=== PATIENT | male | born 1965 | race Caucasian/White ===

== ENCOUNTER 2016-06-19 12:17 | Observation (INO) ==
[2016-06-19] MEDS ORDERED: Clindamycin 900 MG/50 ML 900 MG/50 ML IV.SOLN IVPB ONE (12:36)
--- NOTE | 2016-06-19 12:39 | Emergency Department Note ---
Disposition Clinical Impression: Cellulitis of left foot Disposition: Admitted As Inpatient Condition: Good Time of Disposition: 14:26 General Adult HPI - General Chief complaint: ED Skin/Abscess/Foreign Body Stated complaint: left foot problem Time Seen by Provider: 06/19/16 12:23 Source: patient Mode of arrival: ambulatory Limitations: no limitations Nursing Notes Reviewed: Yes Vital Signs Reviewed: Yes - History of Present Illness HPI Narrative: Mr. Alcala is a 50-year-old male past medical history of high blood pressure and arthritis who presents today with left foot infection. Patient reports that about a month ago the medial portion of his left foot and left big toe he started having tingling and a stinging feeling. 3 days ago he had big blisters along the same area that he contributed to possibly his boots being too tight. He soaked his foot in epsom salt and the surface skin sloughed off. The area underneight was red, bleeding and irritated. He reports that at one point it was draining pus. The area surrounding the wounds became erythematous and numb. He denies any fever or chills, any difficulty walking or severe pain. Patient denies any current treatment for diabetes; he reports that he was treated in the past was taken of all medications over 3 years ago. On his left foot he has two wounds along the medial aspect of the foot and big toe. Area is not currently bleeding and were unable to express any pus. The wounds are very erythematous and raw looking. He has surrounding erythema along the top of his left foot and up along his ankle. The area is warm to the touch and tender per the patient. He has full ROM of his left toes and ankle. There is decreased sensation with numbness and some sharp shooting pain surrounding the wounds. DP and PT pulses are 2+ in the left foot. Pt Subjective Complaint: Left foot wounds Onset (ago): day(s) Location: left, lower extremity Pain Severity: mild Pain Scale: 2 Quality: burning Consistency: constant Improves with: nothing Worsens with: nothing Associated symptoms: Denies: confusion, chest pain, cough, fever/chills, nausea/ vomiting, shortness of breath, weakness - Related Data Previous Rx's Medication Instructions Recorded Omeprazole 20 mg PO DAILY #25 tablet. 11/21/15 Dicyclomine [Bentyl] 20 mg PO QID #20 capsule 11/22/15 Promethazine [Phenergan] 25 mg PO Q6HR #20 tablet 11/22/15 Allergies Allergy/AdvReac Type Severity Reaction Status Date / Time No Known Allergies Allergy Verified 11/21/15 15:16 Constitutional: Denies: fever, chills ENT ED: Denies: congestion Cardiovascular: Denies: chest pain, palpitations Respiratory: Denies: cough, dyspnea, wheezes Gastrointestinal: Denies: abdominal pain, nausea, vomiting Genitourinary: Denies: urgency, dysuria, frequency Integumentary: Reports: other (two wounds along the medial aspect of left foot and left great toe) Neurological: Reports: numbness (surrounding the wounds). Denies: headache, weakness Past Medical History - Past Medical History Medical history: Reports: arthritis, diabetes, hyperlipidemia, hypertension Psychiatric history: Reports: anxiety, depression - Social History Smoking Status: Current every day smoker Smokeless Tobacco Status: No Alcohol use: Reports: heavy Drug use: Reports: none Physical Exam - General Limitations: no limitations General appearance: alert, in no apparent distress - Head Head exam: atraumatic, normocephalic - Eye Eye exam: Present: normal appearance, PERRL, EOMI - ENT ENT exam: normal exam - Neck Neck exam: Present: normal inspection - Chest Chest inspection: Present: normal inspection, symmetric chest wall rise - Respiratory Respiratory exam: Present: normal lung sounds bilaterally. Absent: respiratory distress - Cardiovascular Cardiovascular exam: Present: regular rate, normal rhythm - Abdominal Exam Abdominal exam: Present: soft, Non-Tender - Expanded Lower Extremity Exam Foot/toe exam: Present: tenderness, erythema, other (2 circular wounds along the medial aspect of his left foot and left big toe - red and irritated, no pus or active drainage. Surroundng numbness.). Absent: crepitus Neurovascular/Tendon exam: Present: sensory deficit (decreased sensation surrounding wounds). Absent: pulse deficit, motor deficit Gait: observed and normal - Neurological Exam Neurological exam: Present: alert, oriented X3, CN II-XII intact - Psychiatric Psychiatric exam: Present: normal affect, normal mood - Skin Skin exam: Present: warm, dry, intact Course Course Narrative: Mr. Alcala is a 50-year-old male who presents today with left foot infection. 3 days ago he had big blisters the medial aspect of his left foot and left big toe. He soaked his foot in epsom salt and the surface skin sloughed off. The area underneath was red, bleeding and irritated. He reports that at one point it was draining pus. The area surrounding the wounds became erythematous and numb. He denies any fever or chills, any difficulty walking or severe pain. On he left foot he has two wounds along the medial aspect of the foot and big toe. Area is not currently bleeding and were unable to express any pus. The wounds are very erythematous and raw looking. He has surrounding erythema along the top of his left foot and up along his ankle. The area is warm to the touch and tender per the patient. He has full ROM of his left toes and ankle. There is decreased sensation with numbness and some sharp shooting pain surrounding the wounds. Will do a CBC, CMP and sed rate. Will start IV antibiotics. Will get an x-ray to evaluate for foreign body or osteoarthritis. - Reevaluation(s) Reevaluation #1: Patient started on Cipro and Clindamycin for IV antibiotics. WBC slightly elevated at 12. X-ray showed no fracture, no foreign body and no signs of osteomyolitis. Patient has open wounds with cellulitis that is progressing up the patient's ankle. Believe that patient requires admission for IV antibiotics. Will discuss the patient with the admitting hospitalist. - Consultations Consultation #1: Patient discussed with Dr. Sewell, the hospitalist, and he as accepted the patient for admission. Vital Signs Temperature 97.5 F L 06/19/16 12:19 Pulse Rate 81 06/19/16 12:19 Respiratory Rate 20 06/19/16 12:19 Blood Pressure 167/90 06/19/16 12:19 O2 Sat by Pulse Oximetry 96 06/19/16 12:19 Temperature 98.2 F 06/19/16 18:57 Pulse Rate 71 06/19/16 18:57 Respiratory Rate 15 06/19/16 18:57 Blood Pressure 146/62 06/19/16 18:57 O2 Sat by Pulse Oximetry 94 L 06/19/16 18:57 Oxygen Delivery Oxygen Delivery Room Air Medical Decision Making - MDM Narrative Medical decision making narrative: Mr. Aclala is a 50-year-old male who presents today with left foot infection. 3 days ago he had big blisters the medial aspect of his left foot and left big to and the surface skin sloughed off. The area underneath was red, bleeding and irritated. He reports that at one point it was draining pus. The area surrounding the wounds became erythematous and numb. He denies any fever or chills, any difficulty walking or severe pain. On he left foot he has two wounds along the medial aspect of the foot and big toe. Area is not currently bleeding and were unable to express any pus. The wounds are very erythematous and raw looking. He has surrounding erythema along the top of his left foot and up along his ankle. The area is warm to the touch and tender per the patient. He has full ROM of his left toes and ankle. There is decreased sensation with numbness and some sharp shooting pain surrounding the wounds. CBC showed slightly elevated WBC at 12. X-ray showed no fracture, no foreign body and no signs of osteomyolitis. Concern is that this has spread up his ankle in just 3 days and he is not a diabetic and has no history of foot problems. Believe that patient would be best served with IV antibiotics. Patient accepted by hospitalist for admission. - Lab Data Lab results reviewed: Yes I reviewed the patient's lab results. Lab results narrative: Slightly elevated white blood cell count at 12. Glucose normally 93. Remainder of labs largely within normal limits. Result diagrams: 06/19/16 12:50 06/19/16 12:50 Lab Results 06/19/16 06/19/16 06/19/16 Range/Units 12:50 12:50 12:50 WBC 12.0 H (4.3-11.1) K/mcL RBC 4.62 (4.19-5.50) M/mcL Hgb 15.1 (12.9-16.9) g/dL Hct 42.6 (37.5-50.1) % MCV 92.2 (83.0-100.0) fL MCH 32.7 (28.0-33.3) pg MCHC 35.4 (31.6-35.5) g/dL RDW 11.9 (11.5-14.5) % Plt Count 115 L (140-400) K/mcL MPV 11.4 (9.4-12.4) fL Immature Gran % 0.3 (0-4) % Seg Neutrophils % 64.9 % Lymphocytes % 19.4 % Monocytes % 12.8 % Eosinophils % 2.2 % Basophils % 0.4 % Neutrophils # 7.8 (1.6-8.9) K/mcL Lymphocytes # 2.3 (0.6-4.6) K/mcL Monocytes # 1.5 H (0.0-1.3) K/mcL Eosinophils # 0.3 (0.0-0.6) K/mcL Basophils # 0.1 (0.0-0.2) K/mcL ESR 27 H (0-10) mm/hr Sodium 135 L (136-145) mEq/L Potassium 4.4 (3.5-4.5) mEq/L Chloride 104 (98-109) mEq/L Carbon Dioxide 23 (19-29) mEq/L BUN 13 (8-26) mg/dL Creatinine 0.92 (0.72-1.25) mg/dL Est GFR ( Amer) > 60 (> 60) Est GFR (Non-Af Amer) > 60 (> 60) BUN/Creatinine Ratio 14 (6-26) Glucose 93 (70-99) mg/dL Est Mean Plasma Glucose mg/dl Hemoglobin A1c ( - 5.6) % Calculated Osmolality 280 (280-300) Calcium 9.1 (8.6-10.8) mg/dL C-Reactive Protein 79 H (Less than 5) mg/L 06/19/16 Range/Units 12:50 WBC (4.3-11.1) K/mcL RBC (4.19-5.50) M/mcL Hgb (12.9-16.9) g/dL Hct (37.5-50.1) % MCV (83.0-100.0) fL MCH (28.0-33.3) pg MCHC (31.6-35.5) g/dL RDW (11.5-14.5) % Plt Count (140-400) K/mcL MPV (9.4-12.4) fL Immature Gran % (0-4) % Seg Neutrophils % % Lymphocytes % % Monocytes % % Eosinophils % % Basophils % % Neutrophils # (1.6-8.9) K/mcL Lymphocytes # (0.6-4.6) K/mcL Monocytes # (0.0-1.3) K/mcL Eosinophils # (0.0-0.6) K/mcL Basophils # (0.0-0.2) K/mcL ESR (0-10) mm/hr Sodium (136-145) mEq/L Potassium (3.5-4.5) mEq/L Chloride (98-109) mEq/L Carbon Dioxide (19-29) mEq/L BUN (8-26) mg/dL Creatinine (0.72-1.25) mg/dL Est GFR ( Amer) (> 60) Est GFR (Non-Af Amer) (> 60) BUN/Creatinine Ratio (6-26) Glucose (70-99) mg/dL Est Mean Plasma Glucose 94 mg/dl Hemoglobin A1c 4.9 ( - 5.6) % Calculated Osmolality (280-300) Calcium (8.6-10.8) mg/dL C-Reactive Protein (Less than 5) mg/L - Radiology Data Radiology results reviewed: Yes I reviewed the patient's radiology results. Foot X-Ray 06/19/16 12:37 IMPRESSION: No acute osseous abnormality. D/ / 06/19/2016 13:21:37 Sterling Bailey MD / [facility] Interpreting Provider: Sterling Bailey MD Attestation Statement - Attestation Attestation: I examined this patient and my medical decision-making was reviewed with the LIFT MECHANIC/PA/Advanced Practice Nurse/Resident Physician. I agree with the documented findings, disposition and treatment plan as described except to the extent set forth below. Patient emergency department complaining of some blisters on his foot. Patient states he noticed some blisters on the medial part of his left foot 3 days ago. He thought maybe his boot had rubbed rubbed it. He soaked in Epsom salt and the skin sloughed off. It is becoming increasingly red the past couple of days. Today the red streaks extended up his roberts. He comes for evaluation. He denies being diabetic. He denies any history of claudication or vascular problems. He is a smoker. On exam he has 2 areas over the left medial great toe and the base of the first MTP joint medially or blisters have occurred in the skin is sloughed off. There is erythema diffusely over the thought was some streaks extending up the medial calf. It is warm to touch. There is no drainage from the wounds. He is afebrile. Plan. The patient has infected blisters. He denies any injury or stepping on a foreign body. We will check an x-ray. We will check a sedimentation rate. Basic labs. IV antibiotics and likely admission. This is felt to be infectious and not vascular.
[2016-06-19 13:02] LABS: Basophils # 0.1 K/mcL (0.0-0.2); Basophils % 0.4 %; Eosinophils # 0.3 K/mcL (0.0-0.6); Eosinophils % 2.2 %; Hematocrit 42.6 % (37.5-50.1); Hemoglobin 15.1 g/dL (12.9-16.9); Immature Granulocytes % 0.3 % (0-4); Lymphocytes # 2.3 K/mcL (0.6-4.6); Lymphocytes % 19.4 %; Mean Corpuscular HGB Conc 35.4 g/dL (31.6-35.5); Mean Corpuscular Hemoglobin 32.7 pg (28.0-33.3); Mean Corpuscular Volume 92.2 fL (83.0-100.0); Mean Platelet Volume 11.4 fL (9.4-12.4); Monocytes # 1.5 K/mcL (0.0-1.3); Monocytes % 12.8 %; Neutrophils # 7.8 K/mcL (1.6-8.9); Platelet Count 115 K/mcL (140-400); Red Blood Count 4.62 M/mcL (4.19-5.50); Red Cell Distribution Width 11.9 % (11.5-14.5); Segmented Neutrophils % 64.9 %
[2016-06-19 13:13] LABS: BUN/Creatinine Ratio 14 (6-26); Blood Urea Nitrogen 13 mg/dL (8-26); Calcium 9.1 mg/dL (8.6-10.8); Carbon Dioxide 23 mEq/L (19-29); Chloride 104 mEq/L (98-109); Glucose 93 mg/dL (70-99); Osmolality,Calculated 280 (280-300); Potassium 4.4 mEq/L (3.5-4.5); Sodium 135 mEq/L (136-145); eGFR For African Americans > 60 (> 60); eGFR For Non-African Americans > 60 (> 60)
[2016-06-19] MEDS ORDERED: Acetaminophen 325 MG TABLET PO PRN (14:50)
[2016-06-19] MEDS ORDERED: Naloxone 0.4 MG/ML INJ IVP PRN (14:50)
[2016-06-19] MEDS ORDERED: *HR* LORazepam 2 MG/ML VIAL IVP PRN ×3 (14:55)
--- NOTE | 2016-06-19 14:59 | Internal Med History&Physical ---
<Brittni Arevalo M - Last Filed: 06/19/16 16:09> Date of Encounter: 06/19/16 Time of Encounter: 14:58 Assessment and Plan (1) Cellulitis of left foot Current visit: Yes Status: Acute Vital signs stable, afebrile. Erythema and tenderness ascending from wound site. Xray of the foot showed mild soft tissue swelling, and emphysematous changes within the subcutaneous tissues, no acute osseous abnormality. Aerobic wound culture sent. Patient initiated on Clindamycin and Ciprofloxacin in ED. Patient denies diabetes, but reports he was on metformin in the past, but was stopped due to improved blood sugars. Will get an A1c to check for diabetes. Consult to Podiatry. BLE arterial imaging studies (2) Hypertension Current visit: Yes Status: Acute continue home doses of lisinopril, metoprolol and amlodipine Qualifiers: Hypertension type: essential hypertension Qualified Code(s): I10 - Essential (primary) hypertension (3) Nicotine addiction Current visit: Yes Status: Acute Nicotine patch 21mg TD ordered. Counseling on smoking cessation provided. Qualifiers: Nicotine product type: cigarettes Substance use status: uncomplicated Qualified Code(s): F17.210 - Nicotine dependence, cigarettes, uncomplicated (4) Alcohol abuse Current visit: Yes Status: Acute Patient reports drinking 6-8 beers daily. CIWA protocol ordered. folic acid, thiamine and vitamin B complex ordered. (5) Acid reflux Current visit: Yes Status: Acute Omeprazole 20mg daily Qualifiers: Esophagitis presence: esophagitis presence not specified Qualified Code(s) : K21.9 - Gastro-esophageal reflux disease without esophagitis (6) DVT prophylaxis Current visit: Yes Status: Acute encourage ambulation Lovenox 40mg SQ daily Internal Medicine - H&P: HPI Admitted From: Emergency Dept Plans for Post Hospital Care: Home History of present illness: Mr. Alcala is a 50 year old male with history of HTN, GERD, and alcohol use who presented to the ED with complaint of foot wound. He reports about a month ago the inside of his left foot and left big toe started having tingling and a stinging feeling. About 3 days ago he noted big blisters along the same area that he states were where his boots were rubbing. He soaked his foot in epsom salt and the surface skin sloughed off. The area under the previous blisters was red, bleeding and irritated. He reports that at one point it was draining pus. The area surrounding the wounds became red and numb. He denies any fever or chills, night sweats, body aches. He denies any nausea, vomiting or diarrhea. He does not have any difficulty walking or severe pain. Patient reports he was given metformin for diabetes by his PCP previously, but was taken off of it about 3 years ago when his blood sugars were looking fine. Evaluation in the ED was significant for Xray of the foot which showed mild soft tissue swelling, and emphysematous changes within the subcutaneous tissues , no acute osseous abnormality. WBC count at 12, ESR elevated to 24 and CRP elevated to 79. On his left foot he has two wounds along the medial aspect of the foot and big toe. They appear beefy red, with black, necrotic looking areas within the wound. The surface of the wound is dry, without any bleeding or drainage. He has surrounding erythema along the top of his left foot and up along his ankle. The area is warm to the touch and tender per the patient. He has full ROM of his left toes and ankle. There is decreased sensation with numbness and some sharp shooting pain surrounding the wounds. DP and PT pulses are 2+ in the left foot. Past Med Surg Social Fam HX - Past Medical History Medical history: arthritis, diabetes, GERD, hyperlipidemia, hypertension Psychiatric history: anxiety, depression - Past Surgical History Surgical History: no surgical history - Social History Smoking Status: Current every day smoker (1-2 PPD) Smokeless Tobacco Status: No Alcohol use: heavy (6-8 beers per day) Drug use: none Current living situation: Home, With Family - Family History Mother History Unknown: Yes (adopted) Internal Medicine - H&P: Meds Omeprazole 20 mg PO DAILY #25 tablet. 11/21/15 [Rx] Dicyclomine [Bentyl] 20 mg PO QID #20 capsule 11/22/15 [Rx] Promethazine [Phenergan] 25 mg PO Q6HR #20 tablet 11/22/15 [Rx] Allergies No Known Allergies Allergy (Verified 11/21/15 15:16) All Systems PM: A 10-system review of systems was performed and is negative for pertinent findings except as documented above in the HPI. - Constitutional Constitutional: no chills, no fever(s), no night sweats - EENT Eyes: no change in vision, no discharge, no pain, no photophobia Nose, mouth and throat: no dysphagia, no nasal discharge, no neck pain, no sore throat - Cardiovascular Cardiovascular ROS IM: no chest pain, no diaphoresis, no dyspnea, no lightheadedness, no palpitations, no syncope - Respiratory Respiratory: no cough, no dyspnea, no wheezing, no excessive phlegm production - Gastrointestinal Gastrointestinal: no abdominal pain, no diarrhea, no hematemesis, no hematochezia, no melena, no nausea, no vomiting - Musculoskeletal Musculoskeletal ROS IM: numbness, tingling (left toes and left foot wound) - Integumentary Integumentary IM: erythema (left foot up ankle), new lesions (left foot and big tow) - Neurological Neurological ROS: numbness (left foot wound and toes), tingling, no confusion, no convulsions, no focal weakness, no tremor(s) - Hematologic/Lymphatic Hematologic/Lymphatic: no easy bruising - Constitutional Vitals: Temp Pulse Resp BP Pulse Ox 97.5 F L 65 18 152/95 98 06/19/16 12:19 06/19/16 13:40 06/19/16 14:38 06/19/16 14:38 06/19/16 13:40 General appearance: Present: A&O X 3, pleasant, no acute distress - Head Head exam: Present: atraumatic, normocephalic - Eye Eye exam: Present: PERRL, conjuntiva pink, sclera anicteric Pupils: Present: PERRL - Neck Neck exam general surgery: Present: supple, trachea midline. Absent: lymphadenopathy - Respiratory Respiratory exam: Present: CTAB. Absent: accessory muscle use, rales, rhonchi, wheezes - Cardiovascular Cardiovascular exam: Present: RRR, +S1, +S2. Absent: diastolic murmur, gallop, rubs, systolic murmur - GI/Abdominal GI/Abdominal exam: Present: normal bowel sounds, soft, no peritoneal signs. Absent: distended, tenderness - Extremities Exam Extremities exam: Present: normal capillary refill, warm, radial pulses palpable and symetrical. Absent: pedal edema Additional comments: two beefy red wounds on medial aspect of left foot. Larger one measuring approximately 5cm in diameter. Smaller one measuring approximately 3cm x 2cm and located on the medial big toe. Each wound has some black, necrotic looking tissue within it. Wounds are dry with no pus, bleeding or drainage. Erythema surrounding the wounds and ascending over the dosrum of the foot and up the ankle. - Expanded Lower Extremities Exam Foot/Toe exam: Present: erythema Neuro vascular tendon exam: Present: sensory deficit (left foot wound and toes with numbness and tingling). Absent: abnormal cap refill, pallor - Neurological Exam Neurological exam: Present: CN II-XII intact, oriented X3, no focal deficits. Absent: facial droop, speech deficit - Skin Skin exam: Present: dry, warm Internal Med - H&P Results - Labs CBC & Chem 7: 06/19/16 12:50 06/19/16 12:50 <Landen Sewell - Last Filed: 06/19/16 17:54> Date of Encounter: 06/19/16 Internal Medicine - H&P: HPI History of present illness: Mr. Alcala is a 50 year old male All Systems PM: A 10-system review of systems was performed and is negative for pertinent findings except as documented above in the HPI. - Constitutional Vitals: Temp Pulse Resp BP Pulse Ox 98.1 F 67 16 120/85 95 06/19/16 15:42 06/19/16 15:42 06/19/16 15:42 06/19/16 15:42 06/19/16 15:42 Internal Med - H&P Results - Labs CBC & Chem 7: 06/19/16 12:50 06/19/16 12:50 - Attending Attestation I have seen and examined this patient independently. I have discussed the case with the Nurse Practitioner, Brittni Arevalo. I agree with the data gathering in the HPI, physical examination findings, assessment and plan as documented by our LAY OUT DRAFTER. IV antibiotics, podiatry eval, arterial duplex. D/W patient.
[2016-06-19 15:14] LABS: C-Reactive Protein 79 mg/L (Less than 5)
[2016-06-19 15:24] LABS: Hemoglobin A1C 4.9 %
[2016-06-19] MEDS: Metoprolol XL (24 HR) Succ 50 MG TAB.ER.24H PO SCH (20:28)
[2016-06-19] MEDS: Lisinopril 20 MG TABLET PO SCH (20:28)
[2016-06-19] MEDS: Nicotine 21 MG PATCH.TD24 TD SCH (20:29)
[2016-06-19] MEDS: amLODIPine 5 MG TABLET PO SCH (20:29)
[2016-06-19] MEDS: Clindamycin 600 MG/50 ML 600 MG/50 ML IV.SOLN IVPB SCH (23:56)
[2016-06-20] MEDS: *HR* Enoxaparin 40 MG/0.4 ML SYRINGE SQ SCH (05:40)
[2016-06-20 06:24] LABS: Hematocrit 41.6 % (37.5-50.1); Hemoglobin 14.7 g/dL (12.9-16.9); Immature Granulocytes % 0.6 % (0-4); Lymphocytes % 27.1 %; Mean Corpuscular HGB Conc 35.3 g/dL (31.6-35.5); Mean Corpuscular Volume 93.3 fL (83.0-100.0); Mean Platelet Volume 11.9 fL (9.4-12.4); Monocytes % 13.8 %; Platelet Count 115 K/mcL (140-400); Red Blood Count 4.46 M/mcL (4.19-5.50); Red Cell Distribution Width 11.8 % (11.5-14.5); Segmented Neutrophils % 55.4 %
[2016-06-20 06:25] LABS: BUN/Creatinine Ratio 15 (6-26); Basophils # 0.1 K/mcL (0.0-0.2); Basophils % 0.5 %; Blood Urea Nitrogen 16 mg/dL (8-26); Calcium 8.9 mg/dL (8.6-10.8); Carbon Dioxide 23 mEq/L (19-29); Chloride 106 mEq/L (98-109); Eosinophils # 0.3 K/mcL (0.0-0.6); Eosinophils % 2.6 %; Glucose 78 mg/dL (70-99); Lymphocytes # 3.1 K/mcL (0.6-4.6); Monocytes # 1.6 K/mcL (0.0-1.3); Neutrophils # 6.3 K/mcL (1.6-8.9); Osmolality,Calculated 286 (280-300); Potassium 4.2 mEq/L (3.5-4.5); Sodium 138 mEq/L (136-145); eGFR For African Americans > 60 (> 60); eGFR For Non-African Americans > 60 (> 60)
--- NOTE | 2016-06-20 07:25 | Arterial Study Report ---
LE Arterial Physiologic Study Patient Name:Reagan Alcala Order Number:[id number] Procedure Date:06/19/2016 Date:1965Age:50 yrs Gender:Male Lt BP:141 / mmHg Rt.BP:146 / mmHgHeart Rate: Location:[facility] Room #: 3A43 Machine Operator General:Clarissa Lowry RVT, [facility] Referring MD:Brittni Arevalo, INTERNET RESEARCHER center sales and service associate:Kwan Barnard MD Reading MD:Evert Shelton MD Primary Indications:peripheral vascular disease lower extremity wound Risk Factors Yes/No Hypertension Yes Diabetes No Smoking Current Yes Impressions: The bilateral lower extremities are hemodynamically well maintained. The right ZULEYKA and waveforms are normal. Right ZULEYKA 1.14. The left ZULEYKA and waveforms are normal. Left ZULEYKA: 1.18. Findings LE Arterial Physiologic Exam: Segmental Pressures: Right: The right posterior tibial pressure is 167 mmHg with an index of 1.14. The right dorsalis pedis pressure is 162 mmHg with an index of 1.11. Left: The left posterior tibial pressure is 173 mmHg with an index of 1.18. The left dorsalis pedis pressure is 145 mmHg with an index of 0.99. PVR: Right: The PVR waveforms are normal in the right ankle. Left: The PVR waveforms are normal in the left ankle. Physiologic Test Results: The ZULEYKA was within normal limits. There is no clinically significant arterial insufficiency demonstrated on the right or left at rest. Segmental Pressures Side Location Pressure Index Result Right Posterior Tibial 167 1.14 Right Dorsalis Pedis 162 1.11 Left Posterior Tibial 173 1.18 Left Dorsalis Pedis 145 0.99 Ankle Brachial Index Right Systolic Diastolic ZULEYKA Brachial 146 1.14 Dorsalis Pedis 162 1.11 Posterior Tibial 167 1.14 Left Systolic Diastolic ZULEYKA Brachial 141 1.18 Dorsalis Pedis 145 0.99 Posterior Tibial 173 1.18 Updated by Evert Shelton MD on 06/20/2016 7:21:26 AM with Status of Final electronically signed on 06/20/2016 7:21:38 AM with status of Final
--- NOTE | 2016-06-20 07:32 | Arterial Study Report ---
LE Arterial Duplex Patient Name:Reagan Alcala Order Number:[id number] Procedure Date:06/19/2016 Date:1965Age:50 yrs Gender:Male Location:[facility] Room #: 3A43 Client Support Administrator:Clarissa Lowry RVT, RDCS Referring MD:Brittni Arevalo CNP mill tender second operator:Kwan Barnard MD Reading MD:Evert Shelton MD Primary Indications:peripheral vascular diease foot wound Risk Factors Yes/No Hypertension Yes Diabetes No Smoking Current Yes Impressions: The right posterior tibial artery has a >75% stenosis proximally and is occluded distally. The left posterior tibial artery has a >75% stenosis. The left anterior tibial artery has a >75% stenosis. Recommendations: Risk factor reduction. Further evaluation recommended. Test completed on 06/19/2016 at 10:00:17 pm. Critical findings reported to Dr. Hammond by phone at 10:34:27 pm on 06/19/2016 by Clarissa Lowry RVT, RDCS. Findings Arterial Duplex Results: Right: The PSV in the right distal external iliac artery is 166 cm/s. The PSV in the right common femoral artery is 113 cm/s. The PSV in the right proximal superficial femoral artery is 104 cm/s. The PSV in the right mid superficial femoral artery is 118 cm/s. The PSV in the right popliteal artery is 82 cm/s. The PSV in the right distal superficial femoral artery is 135 cm/s. The PSV in the right tibioperoneal trunk artery is 85 cm/s. There is heterogeneous plaque in the right proximal posterior tibial artery resulting in >75% stenosis. The PSV is 302 cm/s. There is heterogeneous plaque in the right mid posterior tibial artery resulting in 50-75% stenosis. The PSV is 145 cm/s. There is total occlusion in the right distal posterior tibial artery. The PSV in the right proximal peroneal artery is 89 cm/s. The PSV in the right mid peroneal artery is 59 cm/s. The PSV in the right distal peroneal artery is 85 cm/s. The PSV in the right proximal anterior tibial artery is 70 cm/s. The PSV in the right distal anterior tibial artery is 108 cm/s. Left: The PSV in the left distal external iliac artery is 147 cm/s. The PSV in the left common femoral artery is 137 cm/s. The PSV in the left proximal superficial femoral artery is 107 cm/s. There is heterogeneous plaque in the left mid superficial femoral artery. The PSV is 136 cm/s. The PSV in the left popliteal artery is 89 cm/s. The PSV in the left distal superficial femoral artery is 104 cm/s. The PSV in the left tibioperoneal trunk artery is 118 cm/s. There is heterogeneous plaque in the left proximal posterior tibial artery resulting in >75% stenosis. The PSV is 100 cm/s. There is heterogeneous plaque in the left mid posterior tibial artery resulting in 50-75% stenosis. The PSV is 78 cm/s. There is heterogeneous plaque in the left distal posterior tibial artery resulting in total occlusion. The PSV in the left proximal peroneal artery is 136 cm/s. There is heterogeneous plaque in the left mid peroneal artery resulting in <50% stenosis. The PSV is 127 cm/s. There is heterogeneous plaque in the left distal peroneal artery resulting in <50% stenosis. The PSV is 167 cm/s. There is heterogeneous plaque in the left proximal anterior tibial artery resulting in >75% stenosis. The PSV is 478 cm/s. There is heterogeneous plaque in the left mid anterior tibial artery resulting in 50-75% stenosis. The PSV is 106 cm/s. The PSV in the left distal anterior tibial artery is 31 cm/s. There is heterogeneous plaque in the left distal posterior tibial reinsted flow artery resulting in 50-75% stenosis. The PSV is 101 cm/s. LE Duplex Side Vessel PSV EDV Assessment Right Distal External Iliac 166 Right Common Femoral 113 Right Prox Superficial Femoral 104 Right Mid Superficial Femoral 118 Right Popliteal 82 Right Distal Superficial Femoral 135 Right Tibioperoneal Trunk 85 Right Prox Posterior Tibial 302 Right Mid Posterior Tibial 145 Right Distal Posterior Tibial 0 Right Proximal Peroneal 89 Right Mid Peroneal 59 Right Distal Peroneal 85 Right Proximal Anterior Tibial 70 Right Distal Anterior Tibial 108 Left Distal External Iliac 147 Left Common Femoral 137 Left Prox Superficial Femoral 107 Left Mid Superficial Femoral 136 Left Popliteal 89 Left Distal Superficial Femoral 104 Left Tibioperoneal Trunk 118 Left Prox Posterior Tibial 100 Left Mid Posterior Tibial 78 Left Distal Posterior Tibial 0 Left Proximal Peroneal 136 Left Mid Peroneal 127 Left Distal Peroneal 167 Left Proximal Anterior Tibial 478 Left Mid Anterior Tibial 106 Left Distal Anterior Tibial 31 Left Distal Posterior Tibial reinsted flow 101 Updated by Evert Shelton MD on 06/20/2016 7:25:45 AM electronically signed on 06/20/2016 7:26:50 AM with status of Final
[2016-06-20] MEDS: Clindamycin 600 MG/50 ML 600 MG/50 ML IV.SOLN IVPB SCH ×2 (08:23→16:10)
[2016-06-20] MEDS: Lisinopril 20 MG TABLET PO SCH (08:25)
[2016-06-20] MEDS: Vitamin B Complex/Vit C/Vit E 1 EACH TABLET PO SCH (08:25)
[2016-06-20] MEDS: Metoprolol XL (24 HR) Succ 50 MG TAB.ER.24H PO SCH (08:25)
[2016-06-20] MEDS: Nicotine 21 MG PATCH.TD24 TD SCH (08:26)
[2016-06-20] MEDS: amLODIPine 5 MG TABLET PO SCH (08:26)
--- NOTE | 2016-06-20 12:07 | Vascular/Endovasc Consult Note ---
Date of Encounter: 06/20/16 Time of Encounter: 11:45 Assessment and Plan (1) Atherosclerosis of [place] arteries of left leg with ulceration of other part of foot Status: Chronic The pathophysiology and natural history of peripheral vascular disease was discussed with the patient and all questions were answered. The patient reports a 1-2 week history of a left great toe and forefoot ulcer with cellulitis. He reports minimal foot sensation and cannot recall an injury. His ABIs are unremarkable, however, he they may be pseudoelevated due to vessel calcinosis. Furthermore, his duplex reveals significant tibial disease. He has been scheduled for an angiogram with possible intervention. The risks, benefits and alternatives were discussed and all questions were answered. He expressed understanding and wishes to proceed. (2) Cellulitis of left foot Status: Acute He reports improvement since admission. Continue with antibiotics. (3) Alcohol abuse Status: Chronic (4) Hypertension Status: Chronic The patient was counseled regarding atherosclerotic risk factor reduction. Qualifiers: Hypertension type: essential hypertension Qualified Code(s): I10 - Essential (primary) hypertension (5) Nicotine addiction Status: Chronic The patient was counseled extensively regarding smoking cessation. Qualifiers: Nicotine product type: cigarettes Substance use status: uncomplicated Qualified Code(s): F17.210 - Nicotine dependence, cigarettes, uncomplicated - History of Present Illness Consult date: 06/20/16 Requesting physician: Brittni Arevalo Chief complaint: Left foot ulceration History of present illness: Mr. Alcala is a 50 year old male with a history of tobacco abuse hypertension and hyperlipidemia who reports that he was otherwise healthy until several weeks ago when he developed a left foot wound. He reports that it failed to heal. He denies any prior injury. He states that his foot swelled up and turned red so he came to [facility]. He was noted to have cellulitis and was admitted for antibiotic therapy. He underwent vascular labs and they were noted to be abnormal. He was then referred to vascular surgery for further evaluation. He reports that since starting antibiotics his foot looks and feels better. He denies claudication or rest pain. He reports decreased sensation in his bilateral feet. He denies chest pain or shortness of breath. Past Med Surg Social Fam HX - Past Medical History Medical history: arthritis, diabetes, hyperlipidemia, hypertension Psychiatric history: anxiety, depression - Past Surgical History Surgical History: no surgical history - Social History Smoking Status: Current every day smoker Smokeless Tobacco Status: No Alcohol use: heavy Drug use: none - Family History Mother History Unknown: Yes (adopted) Adopted: Yes Medications and Allergies Amlodipine [Norvasc] 5 mg PO DAILY 06/20/16 [History] Citalopram Hydrobromide [Citalopram HBr] 40 mg PO DAILY 06/20/16 [History] Lisinopril [Zestril] 40 mg PO DAILY 06/20/16 [History] Metoprolol XL (24 HR) Succ [Toprol Xl] 50 mg PO DAILY 06/20/16 [History] Aspirin 81 mg PO DAILY #30 tab.chew 06/21/16 [Rx] Clindamycin HCl 300 mg PO QID #48 capsule 06/21/16 [Rx] Clindamycin HCl [Cleocin HCl] 150 mg PO QID #48 capsule 06/21/16 [Rx] Clopidogrel [Plavix] 75 mg PO DAILY #30 tablet 06/21/16 [Rx] Collagenase Oint [Santyl] 1 appl TP BID #90 gram 06/21/16 [Rx] Lactobacillus [Culturelle] 1 each PO BID #30 cap.sprink 06/21/16 [Rx] Pantoprazole Sodium 40 mg PO DAILY #30 tablet. 06/21/16 [Rx] Allergies No Known Allergies Allergy (Verified 11/21/15 15:16) All Systems Review: A 10-system review of systems was performed and is negative for pertinent findings except as documented above in the HPI. - Constitutional Constitutional: no chills, no fever(s) - Cardiovascular Cardiovascular: no chest pain at rest, no chest pain with exertion, no dyspnea at rest, no dyspnea on exertion - Vascular Vascular: lower extremity ulcers (left foot), no claudication, no stroke/TIA, no leg pain with exertion Exam Vital Signs, Last 4 Hours Temp Pulse Resp BP Pulse Ox 06/20/16 11:22 98.0 F 66 14 123/81 95 General: Present: Conversant, No Apparent Distress HEENT: Present: Atraumatic Neck: Absent: JVD, Lymphadenopathy, Tracheal deviation Cardiac: Present: Reg Rate and Rhythm Lungs: Present: Normal Breath Sounds, No Wheeze, Rales, Rhonchi Neuro: Present: Alert and responsive, Cranial nerves grossly intact, Motor nerves grossly intact, Sensory nerves grossly intact (except decreased sensation at bilateral feet) Abdomen: Present: Soft, Non-tender. Absent: Hepatosplenomegaly, Masses Vascular: Present: Normal capillary refill, Pulse, absent (bilateral posterior tibial and dorsalis pedis), Pulse, normal (Radial, femoral and popliteal bilaterally). Absent: Clubbing, Cyanosis, Edema Skin: Present: Wound/ulcer(s) (left forefoot adn great toe ulcer, mild erythema , no fluctuance) Musculoskeletal: Absent: No Chest Wall Tenderness Consult Discharge Plan - Plan Instructions: Cellulitis (DC), Peripheral Vascular Disorders (DC), Chronic Hypertension (DC) Additional Instructions: With Dr. Shelton in [address] Contreras in 1 week Referrals: Kwan Barnard MD [Primary Care Provider] - Evert Shelton MD [Partnered Physician] - 07/19/16 2:50 pm Reagan Contreras DPM [Partnered Physician] - 06/24/16 9:45 am Prescriptions: Aspirin 81 mg PO DAILY #30 tab.chew Clindamycin HCl [Cleocin HCl] 150 mg PO QID #48 capsule Clindamycin HCl 300 mg PO QID #48 capsule Clopidogrel [Plavix] 75 mg PO DAILY #30 tablet Collagenase Oint [Santyl] 1 appl TP BID #90 gram Lactobacillus [Culturelle] 1 each PO BID #30 cap.sprink Pantoprazole Sodium 40 mg PO DAILY #30 tablet.
--- NOTE | 2016-06-20 15:52 | Internal Med Progress Note ---
Date of Encounter: 06/20/16 Time of Encounter: 10:00 - Assessment and plan (1) Cellulitis of left foot Current Visit: Yes Status: Acute Assessment and plan: Patient has left foot ulcer, etiology is undetermined. Patient does seem to have bilateral PVD. Vascular consult on case and appreciated. Plan for angiogram and the possible interventions. Will continue antibiotic treatment at this point. (2) Tobacco abuse Current Visit: Yes Status: Acute Assessment and plan: Smoking cessation education. Patient is on nicotine patch (3) Alcohol abuse Current Visit: Yes Status: Acute Assessment and plan: Put the patient on CIWA protocol and banana bag. (4) DVT prophylaxis Current Visit: Yes Status: Acute Assessment and plan: Lovenox subcutaneously (5) Hypertension Current Visit: Yes Status: Acute Assessment and plan: BP is stable. Continue home medication Qualifiers: Hypertension type: essential hypertension Qualified Code(s): I10 - Essential (primary) hypertension (6) Atherosclerosis of [place] arteries of left leg with ulceration of other part of foot Current Visit: Yes Status: Chronic Assessment and plan: Vascular consult on case. Plan for angiogram. - Time Spent With Patient 25 - 35 minutes - Subjective Interval history: Patient is a 50-year-old male admitted for left foot wound. His past medical history is significant for diabetes, GERD, hyperlipidemia, hypertension. Patient was seen and examined. He is awake, alert. No fever. He had no wound on the medial side of left foot, no pain. Vascular surgeon consult appreciated. We will continue antibiotic treatment. Podiatry consult called. Patient has both feet decrease the sensation. We will check a vitamin B12, folic acid level. Pt denies he has DM and his A1C is only 4.9. - Constitutional Vitals: Temp Pulse Resp BP Pulse Ox 98 F 64 16 122/77 95 06/20/16 14:48 06/20/16 14:48 06/20/16 14:48 06/20/16 14:48 06/20/16 14:48 General appearance: Present: A&O X 3, pleasant, no acute distress - Head Head exam: Present: atraumatic, normocephalic - Eye Eye exam: Present: PERRL, conjuntiva pink, sclera anicteric Pupils: Present: PERRL - Neck Neck exam general surgery: Present: supple, trachea midline. Absent: lymphadenopathy - Respiratory Respiratory exam: Present: CTAB. Absent: accessory muscle use, rales, rhonchi, wheezes - Cardiovascular Cardiovascular exam: Present: RRR, +S1, +S2. Absent: diastolic murmur, gallop, rubs, systolic murmur - GI/Abdominal GI/Abdominal exam: Present: normal bowel sounds, soft, no peritoneal signs. Absent: distended, tenderness - Extremities Exam Extremities exam: Present: warm, radial pulses palpable and symetrical. Absent : calf tenderness, cyanotic, pedal edema Additional comments: Decreased sensation on toes of both feet. There are 2 wound on left foot with black crust, no discharge or bleeding. - Neurological Exam Neurological exam: Present: CN II-XII intact, oriented X3. Absent: pronater drift, facial droop, speech deficit Additional comments: Decreased sensation on the toes of both feet - Skin Skin exam: Present: dry, intact Internal Medicine: Result - Labs CBC & Chem 7: 06/20/16 04:33 06/20/16 04:33 Labs: Short CBC 06/20/16 Range/Units 04:33 WBC 11.3 H (4.3-11.1) K/mcL Hgb 14.7 (12.9-16.9) g/dL Hct 41.6 (37.5-50.1) % Plt Count 115 L (140-400) K/mcL Neutrophils # 6.3 (1.6-8.9) K/mcL BMP 06/20/16 04:33 Sodium 138 Potassium 4.2 Chloride 106 Carbon Dioxide 23 BUN 16 Creatinine 1.04 Glucose 78 Calcium 8.9 Consult Discharge Plan - Plan Referrals: Kwan Barnard MD [Primary Care Provider] -
[2016-06-20] MEDS: *HR* HYDROcodone/Acet 5/325 mg TABLET PO PRN (16:18)
[2016-06-21] MEDS: Clindamycin 600 MG/50 ML 600 MG/50 ML IV.SOLN IVPB SCH
[2016-06-21] MEDS: *HR* Enoxaparin 40 MG/0.4 ML SYRINGE SQ SCH (04:41)
[2016-06-21 06:15] LABS: Basophils % 0.3 %; Eosinophils # 0.2 K/mcL (0.0-0.6); Eosinophils % 2.4 %; Hematocrit 42.7 % (37.5-50.1); Hemoglobin 14.9 g/dL (12.9-16.9); Immature Granulocytes % 0.4 % (0-4); Lymphocytes # 2.2 K/mcL (0.6-4.6); Lymphocytes % 23.7 %; Mean Corpuscular HGB Conc 34.9 g/dL (31.6-35.5); Mean Corpuscular Hemoglobin 32.7 pg (28.0-33.3); Mean Corpuscular Volume 93.6 fL (83.0-100.0); Mean Platelet Volume 11.9 fL (9.4-12.4); Monocytes # 1.2 K/mcL (0.0-1.3); Neutrophils # 5.7 K/mcL (1.6-8.9); Platelet Count 129 K/mcL (140-400); Red Blood Count 4.56 M/mcL (4.19-5.50); Red Cell Distribution Width 11.9 % (11.5-14.5); Segmented Neutrophils % 60.2 %
[2016-06-21] MEDS ORDERED: 0.9 % Sodium Chloride 1,000 ML ONE ×2 (06:15→06:47)
[2016-06-21] MEDS ORDERED: *HR* Heparin 10,000 UNIT/10 ML VIAL ONE (06:15)
[2016-06-21] MEDS ORDERED: Heparin 1,000 UNITS/500 mL NS 500 ML ONE (06:15)
[2016-06-21] MEDS ORDERED: *HR* Midazolam HCl 2 MG/2 ML VIAL ONE (06:15)
[2016-06-21 06:32] LABS: BUN/Creatinine Ratio 13 (6-26); Blood Urea Nitrogen 13 mg/dL (8-26); Calcium 9.3 mg/dL (8.6-10.8); Carbon Dioxide 22 mEq/L (19-29); Chloride 106 mEq/L (98-109); Glucose 99 mg/dL (70-99); Osmolality,Calculated 284 (280-300); Potassium 4.1 mEq/L (3.5-4.5); Sodium 137 mEq/L (136-145); eGFR For African Americans > 60 (> 60); eGFR For Non-African Americans > 60 (> 60)
--- NOTE | 2016-06-21 06:35 | Podiatry Consult Note ---
Date of Encounter: 06/20/16 Time of Encounter: 12:45 Assessment and Plan (1) Atherosclerosis of [place] arteries of left leg with ulceration of other part of foot Current visit: Yes Status: Chronic Assessment: #1 vascular ischemic ulcerations 2 left foot #2 cellulitis associated with ischemic ulcers left foot present cultures negative for pathogens. #3 Inveterate smoker Plan: #1 local wound care at this juncture. Aggressive debridement would not be advised until such time as necessary if we have adequate arterial flow to support debridement. #2 patient angiogram pending History of Present Illness Chief complaint: Ulcerations 2 left medial, first MTPJ and IPJ toe HPI: Mr. Alcala is a 50 year old male who presented to the ED with large blister cellulitis and subsequent ulceration with likely infection of the left foot. He was then admitted for intravenous antibiotics and further workup. He has not complained of nausea vomiting fever chills chest pain shortness of breath. He does have a 30+ pack year history of tobacco use. 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 No specific history of diabetes. No specific history of injury or trauma to the left foot the patient can remember. Patient does not fact have neuropathy on cursory exam Past Med Surg Social Fam HX - Past Medical History Medical history: arthritis, diabetes, hyperlipidemia, hypertension Psychiatric history: anxiety, depression - Past Surgical History Surgical History: no surgical history - Social History Smoking Status: Current every day smoker Smokeless Tobacco Status: No Alcohol use: heavy Drug use: none - Family History Mother History Unknown: Yes (adopted) Adopted: Yes Medications and Allergies Omeprazole 20 mg PO DAILY #25 tablet. 11/21/15 [Rx] Amlodipine [Norvasc] 5 mg PO DAILY 06/20/16 [History] Citalopram Hydrobromide [Citalopram HBr] 40 mg PO DAILY 06/20/16 [History] Lisinopril [Zestril] 40 mg PO DAILY 06/20/16 [History] Metoprolol XL (24 HR) Succ [Toprol XL] 50 mg PO DAILY 06/20/16 [History] Allergies No Known Allergies Allergy (Verified 11/21/15 15:16) All Systems Reviewed: A 10-system review of systems was performed and is negative for pertinent findings except as documented above in the HPI. Physical Exam - Constitutional Vitals: Temp Pulse Resp BP Pulse Ox 98.1 F 75 16 159/97 97 06/21/16 03:40 06/21/16 03:40 06/21/16 03:40 06/21/16 03:40 06/21/16 03:40 - Ankle & Foot left Foot appearance: swelling, erythema, other (Exam: Vascular pedal pulses are palpable but diminished dorsalis pedis and posterior tibial bilaterally. No evidence of varicosities. No edema. Capillary rebound time is adequate. We do see cellulitis involving the distal medial aspect left foot. We see lymphangitis. We do not appreciate any lashay cyanosis of the digits. Neurologic: Loss of protective sensation, epicritic sensation, vibratory sensation. No spasticity no rigidity no facility. Musculoskeletal: No gross defect or deformity. Adequate range of motion of the ankle subtalar metatarsophalangeal joints without pain or crepitus. Integument: Unstageable ulceration medial aspect of the left great toe and first metatarsal phalangeal joint as measured. Wound edges are attached. No undermining no sinus tract or tunneling no fluctuance. No odor.) Results - Labs Result Diagrams: 06/21/16 05:03 06/20/16 04:33 Labs: Abnormal lab results Plt Count 129 K/mcL (140-400) L 06/21/16 05:03 ESR 27 mm/hr (0-10) H 06/19/16 12:50 POC Glucose 126 (58-89) H 06/21/16 05:37 C-Reactive Protein 79 mg/L (Less than 5) H 06/19/16 12:50 H & H 06/21/16 Range/Units 05:03 Hgb 14.9 (12.9-16.9) g/dL Hct 42.7 (37.5-50.1) % All other labs normal. - Diagnostic results Ankle/Foot x-ray: image reviewed Consult Discharge Plan - Plan Referrals: Kwan Barnard MD [Primary Care Provider] -
[2016-06-21 07:04] LABS: Folate 11.5 ng/mL (7.0-31.4)
--- NOTE | 2016-06-21 07:05 | Pre-Sedation Evaluation ---
Pre-sedation evaluation - Pre-sedation checklist Date of procedure: 06/21/16 Recent Vitals: Last Vital Signs Temp 98.1 F 06/21/16 03:40 Pulse 75 06/21/16 03:40 Resp 16 06/21/16 03:40 BP 159/97 06/21/16 03:40 Pulse Ox 97 06/21/16 03:40 H&P (including ROS) documented in medical record: Yes Previous reaction to sedatives/anesthetics: Unknown Dietary Status: NPO after Midnight Dentition: dentures removed ASA Classification *see protocol: CLASS II-Mild systemic disease Plan of Care: Pt appropriate candidate for procedure/moderate/conscious sedation , Risks/benefits of procedure/sedation discussed w/ patient/family
[2016-06-21] MEDS ORDERED: *HR* FentaNYL (PF) 100 MCG/2 ML VIAL ONE (07:22)
--- NOTE | 2016-06-21 08:57 | Procedure Note ---
Date of procedure: 06/21/16 Pre-op diagnosis: Peripheral vascular disease with ulceration Post-op diagnosis: same Procedure: Angiogram with left anterior tibial angioplasty via 4 danish sheath in right common femoral artery. Anesthesia: other (moderate conscious sedation) Surgeon: Evert Shelton Estimated blood loss (cc): 5 Pathology: none sent Condition: stable (no complications) Disposition: floor
[2016-06-21] MEDS ORDERED: Aspirin 81 MG TAB.CHEW PO SCH (09:00)
[2016-06-21] MEDS: *HR* HYDROcodone/Acet 5/325 mg TABLET PO PRN (09:19)
--- NOTE | 2016-06-21 11:04 | Invasive Diagnostic Lab Proc ---
Name: Reagan Alcala Date of Study: 06/21/2016 Date: 1965 Ht: 198.0 in Medical Record#: [id number] Age: 50 Wt: 99 lb Gender: Male BSA: 2.34 Order #: [id number] BMI: 25.25 Physicians Performing MD: Evert Shelton MD Referring MD: Referring MD: Staff Name Position Time In Renan Arambula RN Surgical Appliances Salesperson Sites, Brittni RT (R) Monitor Graciela Hunter RT (R) Scrub Cherie Yin RT (R) Monitor Indications Non-healing Ulcer Procedures Performed AORTOGRAPHY EXT Bilat S\\T\\I AORTOGRAPHY, ABDOMINAL S\\T\\I Pre-Procedure Checklist Informed consent is complete signed and on chart. H\\T\\P is on chart. ID band is on and ID verified with patient. Patient NPO for procedure The procedure was described for the patient and questions were answered. Blood Pressure: 159/97 ECG is on chart. Rhythm: NSR Plan of Care Patient will tolerate the procedure without complications. Adequate level of comfort will be maintained. Hemodynamics will remain stable Patient will recover from procedure without complications. Respiratory function will be maintained. Cardiac rhythm will remain stable. Patient temperature will be maintained. Patient and/or family have verbalized understanding of the procedure. Patient Education Chief Complaint/Reason for Test: Peripheral angiogram Developmental Category: Adult (18-64 years) Learning Barriers: None Education Needs: Procedure Education Method: Verbal Information Taught: Peripheral angiogram Educational Evaluation: Able to repeat information Intravenous Access Time IV Size Location DC'd Fluid/Drip Rate Units RN 20g 1 06/22" Patent On Arrival Lt Arm 0.9NaCl 25 ml/hr Renan Arambula RN Allergies No Known Allergies Vital Signs Time BP Systolic BP Diastolic HR O2 Sats ASA 159 97 75 75 07:15 AM 07:15 AM 07:31 AM 08:44 AM 150 85 62 98 07:54 AM 134 85 65 96 07:59 AM 132 86 65 94 08:04 AM 137 88 66 95 08:09 AM 140 89 65 96 08:14 AM 144 91 63 96 08:19 AM 141 91 64 95 08:24 AM 147 85 65 96 08:29 AM 160 96 64 07:14 AM 136 87 71 97 07:19 AM 126 82 73 97 07:24 AM 124 83 67 94 07:29 AM 133 85 68 92 07:34 AM 135 83 67 92 07:39 AM 136 85 66 93 07:44 AM 134 84 67 93 07:49 AM 129 83 65 94 09:00 AM 154 88 65 93 09:15 AM 155 79 63 95 09:30 AM 137 82 64 94 09:45 AM 139 88 65 94 10:00 AM 151 84 70 94 10:15 AM 139 87 72 96 10:25 AM 99 61 72 96 10:30 AM 106 66 74 96 10:45 AM 133 77 72 96 10:50 AM 150 89 69 96 Procedure Medications Time Medication Dose Units Method Route 07:14 AM Oxygen 2 L/min nasal cannula 07:05 AM Versed 1 mg Intravenous 07:14 AM Versed 1 mg Intravenous 07:20 AM Lidocaine 2% 4 ml Subcutaneous 07:21 AM Lidocaine 2% 10 ml Subcutaneous 07:25 AM Fentanyl 50 mcg Intravenous 07:36 AM Oxygen 4 L/min nasal cannula 07:50 AM Heparin 3000 units Intra-arterial 07:53 AM Heparin 2000 units Intravenous 08:23 AM Lidocaine 2% 6 ml Subcutaneous ASA Classification: CLASS II- Mild systemic disease (i.e. well-controlled diabetes, hypertension, asthma, cigarette smoking) Rosalie Score Preprocedure Postprocedure Activity 2- Moves 4 extremities sustained head lift Activity 2- Moves 4 extremities sustained head lift Circulation 2- SBP +/= 20 points of pre-anesthetic level Circulation 2- SBP +/= 20 points of pre-anesthetic level Consciousness 2- Awake and alert oriented x 3 Consciousness 2- Awake and alert oriented x 3 O2 Saturation 2- Able to maintain O2 satruation of 92% on room air O2 Saturation 2- Able to maintain O2 satruation of 92% on room air Respiratory 2- Able to deep breathe and cough well Respiratory 2- Able to deep breathe and cough well Total Score 10 Total Score 10 Contrast: Isovue 250- 150ml Contrast Amount: 97 ml Fluoro Dose: 14 mGy Activated Clotting Time Time Drawn ACT (sec) 08:22 AM 220 10:20 AM 151 Procedure Log Time Note Entered By 06:35 AM Physician paged/called 06:35 tsites 06:43 AM Physician arrived 06:42 tsites 06:46 AM Physican responded and notified patient is ready 06:46 tsites 06:45 AM Pt arrived to carpenter labor supervisor 1 at 06:45 tsites 06:48 AM Case delayed: No tsites 06:48 AM Renan Arambula RN Position: Surgical Appliances Salesperson Time in: 06:48 tsites 06:48 AM Brittni Maza RT (R) Position: Monitor Time in: 06:48 tsites 06:48 AM Graciela Hunter RT (R) Position: Scrub Time in: 06:48 tsites 07:02 AM Physician arrived 07:02 tsites 07:02 AM Sign in performed according to hospital policy. tsites 07:02 AM Procedure start 07:02 tsites 07:14 AM Hair removed from procedure site in procedure lab using clippers. prepped with Chloraprep by Brittni Maza RT (R) then patient draped. Skin intact. tsites 07:14 AM 07:14 Oxygen at 2 L/min per nasal cannula by Renan Arambula RN tsites 07:05 AM 07:05 Versed 1 mg Intravenous Given by Renan Arambula RN tsites 07:14 AM 07:14 Versed 1 mg Intravenous Given by Renan Arambula RN tsites 07:14 AM Time: 07:14 Is patient comfortable and pain free?: Yes tsites 07:15 AM Time: 07:15LOC: 5 = Fully awake and oriented or at pre-proc level tsites 07:15 AM Patient charges- Angio tray pack, Pulse Oximetry and ACIST tubing and transducer tsites 07:19 AM Time out perfomed tsites 07:20 AM Ultrasound, Sonosite, utilized to obtain vascular access tsites 07:20 AM 07:20 4 ml Lidocaine 2% to right groin Subcutaneous Given By Evert Shelton MD tsites 07:21 AM Access obtained in the right femoral artery by percutaneous puncture. 4 Fr. 10 cm Terumo [place] sheath placed in right femoral artery tsites 07:21 AM 07:21 10 ml Lidocaine 2% to right groin Subcutaneous Given By Evert Shelton MD tsites 07:22 AM 0.035 180cm Bents[place] wire utilized to assist with catheter placement tsites 07:22 AM 4Fr Omniflush catheter inserted over the wire tsites 07:23 AM Wire removed tsites 07:24 AM Abdominal aorta angiography performed in AP contrast injected 10/20 mls. tsites 07:25 AM repositioned catheter tsites 07:26 AM Setting up for stepping tsites 07:31 AM Time: 07:15LOC: 4 = Oriented but drowsy tsites 07:31 AM Time: 07:14 Is patient comfortable and pain free?: Yes tsites 07:31 AM Abdominal angiogram with runoff completed: 8 ml/sec for a total of 60 mls tsites 07:32 AM bentson wire reinserted tsites 07:25 AM 07:25 Fentanyl 50 mcg Intravenous Given by Renan Arambula RN tsites 07:34 AM Intervention started at this time tsites 07:34 AM Sheath exchanged for a 4 Fr 45 cm Terumo [place] sheath inserted into right femoral artery tsites 07:36 AM Guide wire removed intact tsites 07:36 AM 0.014 Journey 300cm guidewire advanced. tsites 07:36 AM 07:36 Oxygen at 4 L/min per nasal cannula by Renan Arambula RN tsites 07:39 AM 4cc of contrast injected into the left lower leg tsites 07:40 AM 4cc of contrast injected into the left lower leg tsites 07:42 AM 4Fr 150cm Mariner [place] guide catheter advanced to target vessel tsites 07:45 AM Guide catheter removed intact tsites 07:46 AM 4Fr 150cm [place] guide catheter advanced to target vessel tsites 07:46 AM Time: 07:31 Is patient comfortable and pain free?: Yes tsites 07:46 AM Time: 07:31LOC: 4 = Oriented but drowsy tsites 07:47 AM Guide wire removed intact tsites 07:49 AM wire reinserted tsites 07:50 AM 4cc of contrast injected into the left lower leg tsites 07:51 AM 07:50 Heparin 3000 units Intra-arterial by Evert Shelton MD tsites 07:53 AM 07:53 Heparin 2000 units Intravenous by Renan Arambula RN tsites 07:55 AM Cherie Yin RT (R) Position: Monitor to relieve Sites, Brittni RT (R) Time in: 07:55 dspellman 07:57 AM 2 mm x 220 mm [place] balloon catheter placed into left anterior tibial dspellman 07:57 AM Balloon inflated @ 8 alejandrina for 60 seconds dspellman 07:58 AM Balloon removed intact dspellman 07:58 AM contrast injected, images obtained dspellman 08:01 AM 3 mm x 100 mm [place] balloon catheter placed into left anterior tibial dspellman 08:03 AM Balloon inflated @ 8 alejandrina for 60 seconds dspellman 08:03 AM balloon repositioned dspellman 08:06 AM contrast injected, images obtained dspellman 08:08 AM Balloon inflated @ 8 alejandrina for 60 seconds dspellman 08:10 AM Balloon inflated @ 8 alejandrina for 60 seconds dspellman 08:12 AM Balloon removed intact dspellman 08:12 AM contrast injected, images obtained dspellman 08:13 AM Balloon inflated aborted dspellman 08:14 AM Balloon inflated @ 8 alejandrina for 60 seconds dspellman 08:16 AM Balloon removed intact dspellman 08:17 AM contrast injected, images obtained dspellman 08:17 AM Guide wire removed intact dspellman 08:18 AM ACT drawn dspell 08:19 AM Procedure completed at 08:19 dspellman 08:22 AM ACT: 220 seconds 08:22 dspell 08:22 AM Sheath exchanged for a 4 Fr 11 cm [place] sheath inserted into right femoral artery dspell 08:23 AM 08:23 6 ml Lidocaine 2% to right groin Subcutaneous Given By Evert Shelton MD dspell 08:26 AM Sign Out completed: Radiation Dose mGy Fluoro Time: 10.5 minutes. Isovue 250- 150ml contrast 98 ml given by Evert Shelton MD. Complications: None. Confirmed administered medications:Yes dspell 08:27 AM Isovue 250- 150ml,1 bottle(s) used. dspell 08:27 AM Sheath left in place to be pulled on floor/holding areaV+Pad dspell 08:27 AM Post Blood Pressure: 147/85 dspellman 08:27 AM Post EKG: NSR dspell 08:27 AM Information taught: Peripheral angiogram and MRI TECHNOLOGIST dspell 08:28 AM Education needs: Procedure, Disease Process, and Responsibilities of Patient in Care dspell 08:28 AM Learning barriers: None dspell 08:28 AM Education methods: Verbal dspell 08:28 AM Education evaluation: Able to repeat information dspell 08:29 AM Patient pain level 0/10 dspellman 08:29 AM Site status No bleeding/hematoma - Rt Groin as reported by Graciela Hunter RT (R) at 08:29 dspellman 08:31 AM Opsite applied dspell 08:31 AM Report given to Halle OWENS. Pt taken to Holding room, Room # 14 08:31 [facility] 08:31 AM Delay to floor: [facility] 08:32 AM [facility] AM Complications: None [facility] 08:32 AM Fluoro Time: 10.5 minutes [facility] 08:32 AM Isovue 250- 150ml contrast 97 ml given by Evert Shelton MD [facility] 08:33 AM Radiation Dose 13.89 mGy [facility] 08:33 AM Patient out of room 08:33 dsp 07:44 AM HR=67 bpm, JJHX=676/84 mmhg, SpO2=93.0 %, Resp=13 B/min 07:49 AM HR=65 bpm, EGUJ=693/83 mmhg, SpO2=94.0 %, Resp=12 B/min 07:54 AM HR=65 bpm, PYZS=519/85 mmhg, SpO2=96.0 %, Resp=12 B/min, Comment=NSR 07:59 AM HR=65 bpm, AISJ=898/86 mmhg, SpO2=94.0 %, Resp=13 B/min, Comment=NSR 08:04 AM HR=66 bpm, YTZN=813/88 mmhg, SpO2=95.0 %, Resp=12 B/min, Comment=NSR 08:09 AM HR=65 bpm, KUUT=250/89 mmhg, SpO2=96.0 %, Resp=17 B/min, Comment=NSR 08:14 AM HR=63 bpm, BPPV=784/91 mmhg, SpO2=96.0 %, Resp=13 B/min, Comment=NSR 08:19 AM HR=64 bpm, EJUR=442/91 mmhg, SpO2=95.0 %, Resp=12 B/min, Comment=NSR 08:24 AM HR=65 bpm, DGGB=534/85 mmhg, SpO2=96.0 %, Resp=15 B/min, Comment=NSR 08:29 AM HR=64 bpm, CHRI=082/96 mmhg, Resp=10 B/min 06:26 AM PVIStat 07:13 AM Vitals capture started with the following parameters, Patient=Adult, Interval=5 min, Initial Njdbhkje=027 mmHg, Deflation Rate=5 mmHg, Cuff placed on Left Leg 07:13 AM Recorded ECG: HR=66 Condition=Condition 1 07:13 AM Pressure channel 1 zeroed. 07:14 AM HR=71 bpm, KVOQ=726/87 mmhg, SpO2=97.0 %, Resp=10 B/min 07:19 AM HR=73 bpm, YYLA=908/82 mmhg, SpO2=97.0 %, Resp=15 B/min 07:24 AM HR=67 bpm, SHMD=785/83 mmhg, SpO2=94.0 %, Resp=15 B/min 07:29 AM HR=68 bpm, VWZD=281/85 mmhg, SpO2=92 %, Resp=20 B/min 07:34 AM HR=67 bpm, VTAO=951/83 mmhg, SpO2=92.0 %, Resp=13 B/min 07:39 AM HR=66 bpm, YPTB=163/85 mmhg, SpO2=93.0 %, Resp=13 B/min 10:20 AM ACT: 151 seconds 10:20 [email or web address] 10:23 AM Arterial sheath pulled using manual compression and 2x2 for 17 minutes by Renan Arambula RN mprater 10:48 AM Arterial sheath pulled. 2x2 closure device used and was Successful S/N. mprater 10:25 AM pt c/o nausea, diaphoretic, bp 99/61. IVF opened. ymptoms quickly resolved mprater 10:55 AM report called to renan 3A mprater 11:00 AM pt transported to 3A mprater Post Procedure Information Blood Pressure: 147/85 mmHg Rhythm: NSR Post procedure instructions given Site Checks Time Location Status Staff Sheath In? Note 8:29:00 AM Rt Groin No bleeding/ No Hematoma Graciela Hunter RT (R) 06/21/2016 8:44:00 AM Rt Groin No bleeding/ No Hematoma Renan rAambula RN 06/21/2016 9:00:00 AM Rt Groin No bleeding/hematoma Adrianne Garrtet RN 06/21/2016 9:15:00 AM Rt Groin No bleeding/hematoma Adrianne Garrett RN 06/21/2016 9:30:00 AM Rt Groin No bleeding/hematoma Adrianne Garrett RN 06/21/2016 9:45:00 AM Rt Groin No bleeding/ No Hematoma Dara Landaverde RN 06/21/2016 10:00:00 AM Rt Groin No bleeding/ No Hematoma Dara Landaverde RN 06/21/2016 10:15:00 AM Rt Groin No bleeding/ No Hematoma Dara Landaverde RN 06/21/2016 10:30:00 AM Rt Groin No bleeding/ No Hematoma Renan Arambula RN 06/21/2016 10:45:00 AM Rt Groin No bleeding/ No Hematoma Ysabel Lee RN 06/21/2016 10:55:00 AM Rt Groin No bleeding/ No Hematoma Ysabel Lee RN 06/21/2016 11:00:00 AM Rt Groin No bleeding/ No Hematoma Ysabel Lee RN Pulses Time Site Pre Procedure Post Procedure Note Bilateral DP \\T\\ PT 2+ 06/21/2016 8:34:00 AM Bilateral DP \\T\\ PT 2+ 06/21/2016 9:00:00 AM Bilateral DP \\T\\ PT 2+ 06/21/2016 9:15:00 AM Bilateral DP \\T\\ PT 2+ 06/21/2016 9:30:00 AM Bilateral DP \\T\\ PT 2+ 06/21/2016 9:45:00 AM Bilateral DP \\T\\ PT 2+ 06/21/2016 10:00:00 AM Bilateral DP \\T\\ PT 2+ 06/21/2016 10:45:00 AM Bilateral DP \\T\\ PT 2+ 06/21/2016 10:55:00 AM Bilateral DP \\T\\ PT 2+ Updated by Ysabel Lee RN on 06/21/2016 11:00:33 AM Ysabel Lee RN electronically signed on 06/21/2016 11:01:09 AM with status of Final
--- NOTE | 2016-06-21 11:42 | Invasive Diagnostic Lab ---
Name: Reagan Alcala Date of Study: 06/21/2016 Date: 1965 Ht: 198.0 in Medical Record#: [id number] Age: 50 Wt: 99 lb Gender: Male BSA: 2.34 Order #: [id number] Fluoro: 14 mGy BMI: 25.25 Procedure MD: Evert Shelton MD Procedures Performed: AORTOGRAPHY EXT Bilat S\T\I AORTOGRAPHY, ABDOMINAL S\T\I Add'l Complete exam TIB/PER REVASC W/TLA Indications: Peripheral Vascular Disease with ulceration Impressions: Bilateral renal arteries are patent. No significant aortic, iliac, femoral or popliteal disease. 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 Right anterior tibial and peroneal arteries are patent without stenosis. Left peroneal artery is patent without stenosis. Left posterior tibial occlusion and tandem stenoses successfully treated with [id number] and 3.0 x 100mm balloon angioplasty. Severe bilateral disease below the ankle. No complications. Recommendations: Atherosclerotic risk factor reduction. Smoking cessation. Daily ASA and Plavix. Follow-up in Vascular clinic. History/ Risk Factors: Diabetes Dyslipidemia Hypertension Hx of Tobacco Use Peripheral Artery Disease Technique: The patient was identified in the preoperative area and taken to the catheterization lab. The patient was prepped and draped in the normal sterile fashion. After the timeout procedure was performed, local anesthetic was infused over the right groin. Under ultrasound guidance, the right common femoral artery was cannulated with a large bore needle. A TeeBeeDee wire was advanced though the needle into the aorta under fluoroscopic view. The needle was exchanged for a 4 icelandic sheath and an omniflush catheter was advanced into the suprarenal aorta. The wire was removed and an abdominal aortogram was performed. The catheter was then withdrawn to the aortic bifurcation and a bilateral lower extremity angiogram was then performed. The left common iliac artery was selected with a catheter and a wire was advanced into the left superficial femoral artery. The catheter was then advanced over the wire into the left superficial femoral artery and additional selective imaging was then performed to further evaluate the left tibial vessels. The wire was then advanced into the left superficial femoral artery. The 4 icelandic sheath was exchanged over a wire for a 4 icelandic long sheath. The tip of the sheath was positioned in the left superficial femoral artery. A selective image was then performed to further evaluate the left anterior tibial artery lesions. A wire was advanced into the left anterior tibial artery and a crossing catheter was used to traverse the left superficial femoral artery occlusion. An angiogram then confirmed sucessful crossing of the lesion. The patient received 5000 units of heparin. A [place] catherter was advanced to the lesion and an atherectomy was performed. After completing the atherectomy and angiogram revealed residual stenosis. A 4 x 220mm ballon was advanced over the wire and an angioplasty was performed. An angiogram revealed no residual stenosis and no evidence of distal embolization. The sheath was removed over a wire and a starclose was deployed to aid in hemostasis. Direct pressure was then held to further aid in hemostasis. The patient was then taken to the holding area in stable condition. Vessel Findings: * Abdominal Arteries The Right internal iliac is angiographically free of disease. The Right external iliac is angiographically free of disease. The Left internal iliac is angiographically free of disease. The Left external iliac is angiographically free of disease. The Left renal is angiographically free of disease. The Right renal is angiographically free of disease. The Abd. aorta infrarenal is angiographically free of disease. The Inferior mesenteric is angiographically free of disease. The Right common iliac is angiographically free of disease. The Left common iliac is angiographically free of disease. * Lower Extremity Arteries The Right ant.tibial is angiographically free of disease. The Right dorsal pedal is angiographically free of disease. The Left dorsal pedal is angiographically free of disease. The Right Femoral is angiographically free of disease. The Right superficial femoral is angiographically free of disease. The Right popliteal is angiographically free of disease. The Right tibioperoneal trunk is angiographically free of disease. The Right peroneal is angiographically free of disease. The Left Femoral is angiographically free of disease. The Left superficial femoral is angiographically free of disease. The Left popliteal is angiographically free of disease. The Left tibioperoneal trunk is angiographically free of disease. The Left peroneal is angiographically free of disease. There is a lesion present with 100% stenosis, in the Right Post. Tibial. No intervention was performed on this Lesion. There is a lesion present with 100% stenosis, in the Mid Left Ant. Tibial. An intervention was performed on the Left Ant. Tibial, with a final stenosis of 0%. There were no complications in the vessel segment during the procedure. There is a lesion present with 80% stenosis, in the Distal Left Ant. Tibial. An intervention was performed on the Left Ant. Tibial, with a final stenosis of 10%. There were no complications in the vessel segment during the procedure. There is a lesion present with 80% stenosis, in the Proximal Left Ant. Tibial. An intervention was performed on the Left Ant. Tibial, with a final stenosis of 10%. There were no complications in the vessel segment during the procedure. There is a lesion present with 100% stenosis, in the Left Post. Tibial. No intervention was performed on this Lesion. Lesions: Right Post. Tibial Stenosis: 100% Left Post. Tibial Stenosis: 100% Mid Left Ant. Tibial Stenosis: 100% Residual Stenosis: 0% Distal Left Ant. Tibial Stenosis: 80% Residual Stenosis: 10% Proximal Left Ant. Tibial Stenosis: 80% Residual Stenosis: 10% Total Contrast: Isovue 250- 150ml 97mls Updated by Evert Shelton MD on 06/21/2016 11:36:40 AM electronically signed on 06/21/2016 11:37:48 AM with status of Final
[2016-06-21] MEDS: Nicotine 21 MG PATCH.TD24 TD SCH (12:33)
[2016-06-21] MEDS: Metoprolol XL (24 HR) Succ 50 MG TAB.ER.24H PO SCH (12:33)
[2016-06-21] MEDS: amLODIPine 5 MG TABLET PO SCH (12:33)
[2016-06-21] MEDS: Lisinopril 20 MG TABLET PO SCH (12:34)
[2016-06-21] MEDS: Vitamin B Complex/Vit C/Vit E 1 EACH TABLET PO SCH (12:35)
[2016-06-21 14:27] VITALS: BP 135/88
--- NOTE | 2016-06-21 14:58 | Discharge Summary ---
Date of Encounter: 06/21/16 Time of Encounter: 14:54 - Discharge Diagnosis (1) Cellulitis of left foot Priority: Primary Status: Acute (2) Alcohol abuse Priority: Secondary Status: Acute (3) DVT prophylaxis Priority: Secondary Status: Acute (4) Hypertension Priority: Secondary Status: Acute Qualifiers: Hypertension type: essential hypertension Qualified Code(s): I10 - Essential (primary) hypertension (5) Tobacco abuse Priority: Secondary Status: Acute (6) Atherosclerosis of [place] arteries of left leg with ulceration of other part of foot Priority: Secondary Status: Chronic - Discharge Medications Prescriptions: Aspirin 81 mg PO DAILY #30 tab.chew Clindamycin HCl [Cleocin HCl] 150 mg PO QID #48 capsule Clindamycin HCl 300 mg PO QID #48 capsule Clopidogrel [Plavix] 75 mg PO DAILY #30 tablet Collagenase Oint [Santyl] 1 appl TP BID #90 gram Lactobacillus [Culturelle] 1 each PO BID #30 cap.sprink Pantoprazole Sodium 40 mg PO DAILY #30 tablet. Agra Medications: Amlodipine [Norvasc] 5 mg PO DAILY 06/20/16 [History] Citalopram Hydrobromide [Citalopram HBr] 40 mg PO DAILY 06/20/16 [History] Lisinopril [Zestril] 40 mg PO DAILY 06/20/16 [History] Metoprolol XL (24 HR) Succ [Toprol Xl] 50 mg PO DAILY 06/20/16 [History] Aspirin 81 mg PO DAILY #30 tab.chew 06/21/16 [Rx] Clindamycin HCl 300 mg PO QID #48 capsule 06/21/16 [Rx] Clindamycin HCl [Cleocin HCl] 150 mg PO QID #48 capsule 06/21/16 [Rx] Clopidogrel [Plavix] 75 mg PO DAILY #30 tablet 06/21/16 [Rx] Collagenase Oint [Santyl] 1 appl TP BID #90 gram 06/21/16 [Rx] Lactobacillus [Culturelle] 1 each PO BID #30 cap.sprink 06/21/16 [Rx] Pantoprazole Sodium 40 mg PO DAILY #30 tablet. 06/21/16 [Rx] Allergies/Adverse Reactions: Allergies No Known Allergies Allergy (Verified 11/21/15 15:16) Procedures/tests Complete & Pending: Procedures Performed prior 72 hours Category Date Time Status CL Peripheral Angiography [CL] Routine Bench Hand 06/21/16 06:20 Completed ZULEYKA [EV ankle brachial index] Stat Y 06/19/16 16:35 Completed EV arterial imaging LE BI Stat Y 06/19/16 15:42 Completed Date of admission: 06/19/16 14:23 Primary care physician: Kwan Barnard, Consults: 06/19/16 14:55 Consult to Tool Design Checker [CONS] Routine Reason for SW Consult: drinks 6-8 beers per night. placed on CIWA protocol while here. 06/19/16 15:31 Consult to Podiatry [CONS] Routine Consulting Provider: [facility] Reason for Consult: 50 yo male with Left foot wound, admitted with cellulitis Call Completed: Yes 06/19/16 22:39 Consult to Vascular Surgery [CONS] Routine Consulting Provider: Vascular Surgery [facility] Reason for Consult: Arterial images show posterior tibial occlusions. Patient with LLE foot wound. Call Completed: No Discharging clinician: Saundra Okeefe Anticipated date of discharge: 06/21/16 - Patient Status Disposition: Home, Self-Care Condition: Good Functional capacity at discharge: independent ambulation Overall status at discharge: patient is progressing back to baseline - Discharge Instructions Instructions: Cellulitis (DC), Chronic Hypertension (DC), Peripheral Vascular Disorders (DC) Follow Up With: Kwan Barnard MD [Primary Care Provider] - Additional Instructions: With Dr. Shelton [place] [address] Contreras in 1 week - Diet and Activity Activity: resume usual activities as tolerated Diet: low salt diet Hospital course: Mr. Alcala is a 50 year old male with history of chronic tobacco abuse, hypertension was admitted here with cellulitis and ulceration left foot. Initial x-ray suggested emphysematous changes in the subcutaneous tissues. Podiatry was consulted. The patient has poor vascular supply and the ulcers were arterial in nature with peripheral vascular disease. No clear evidence of emphysematous changes present on examination. Podiatry recommended evaluation by vascular surgery for possible angioplasty. Patient underwent arterial Doppler and then balloon angioplasty of the left anterior tibial artery. Patient was treated with IV antibiotics since his admission. Podiatry recommends discharge with outpatient follow-up. Local wound care with Santyl. Patient on aspirin and Plavix. Counseled to quit tobacco use. - Time Spent with Patient Total time spent providing and/or coordinating discharge services: Greater than 30 minutes (40 min) - Constitutional Vitals: Temp Pulse Resp BP Pulse Ox 98.6 F 65 16 135/88 97 06/21/16 14:25 06/21/16 14:25 06/21/16 14:25 06/21/16 14:25 06/21/16 14:25 General appearance: Present: cooperative, A&O X 3, pleasant, no acute distress, answers questions appropriately - Respiratory Respiratory exam: Present: CTAB. Absent: accessory muscle use, rales, rhonchi, wheezes - Cardiovascular Cardiovascular exam: Present: RRR, +S1, +S2. Absent: diastolic murmur, gallop, rubs, systolic murmur - Extremities Exam Additional comments: Tenderness over the right groin at site of catheterization. Left foot currently bandaged. Erythema has significantly improved. Ulcers present on medial aspect of left great toe and first metatarsophalangeal joint. Stable in appearance. - Neurological Exam Neurological exam: Present: oriented X3, no focal deficits, strengths equal and symetr throughout. Absent: facial droop, speech deficit - Psychiatric Psychiatric exam: Present: normal affect, normal mood - Attending Attestation This document has been at least partially created by [employer] voice recognition technology by Dr. Okeefe. Errors in grammar, wording or other phrases may exist. If errors are found after the documentation is signed, they will be addressed individually in the addendum section of this document when appropriate.
== END 2016-06-21 16:32 | disposition home or self-care (01) ==
LOC: 3ANU 12:17 → EMEROO 12:17 → SUATTDRO 14:23 → 3ANU 15:30
PROVIDERS: ADMIT Nurse Practitioner Family; ATTEND Internal Medicine

== ENCOUNTER 2019-06-29 15:30 | Inpatient (IN) ==
[2019-06-29] MEDS ORDERED: *HR* FentaNYL (PF) 100 MCG/2 ML VIAL IVP ONE (15:41)
[2019-06-29 17:09] LABS: Basophils % 0.3 %; Eosinophils # 0.1 K/mcL (0.0-0.6); Eosinophils % 1.5 %; Hematocrit 39.7 % (37.5-50.1); Hemoglobin 14.1 g/dL (12.9-16.9); Immature Granulocytes % 0.3 % (0-4); Lymphocytes # 2.4 K/mcL (0.6-4.6); Lymphocytes % 27.2 %; Mean Corpuscular HGB Conc 35.5 g/dL (31.6-35.5); Mean Corpuscular Hemoglobin 33.3 pg (28.0-33.3); Mean Corpuscular Volume 93.9 fL (83.0-100.0); Mean Platelet Volume 11.1 fL (9.4-12.4); Monocytes % 11.2 %; Neutrophils # 5.3 K/mcL (1.6-8.9); Platelet Count 133 K/mcL (140-400); Red Blood Count 4.23 M/mcL (4.19-5.50); Red Cell Distribution Width 12.2 % (11.5-14.5); Segmented Neutrophils % 59.5 %; White Blood Count 8.9 K/mcL (4.3-11.1)
[2019-06-29] MEDS ORDERED: Ondansetron 4 MG/2 ML VIAL IVP ONE (17:13)
[2019-06-29] MEDS ORDERED: Naloxone 0.4 MG/ML INJ IVP PRN (17:19)
[2019-06-29] MEDS ORDERED: Ondansetron 4 MG/2 ML VIAL IVP PRN (17:19)
[2019-06-29] MEDS ORDERED: *HR* HYDROmorphone (PF) 1 MG/ML SYRINGE IVP ONE (17:22)
[2019-06-29] MEDS ORDERED: Ipratropium/Albuterol Neb 3 ML IH PRN (17:22)
[2019-06-29 17:23] LABS: Prothrombin Time 11.6 Seconds (9.4-12.1)
[2019-06-29 17:25] LABS: BUN/Creatinine Ratio 14 (6-26); Blood Urea Nitrogen 13 mg/dL (6-20); Calcium 8.6 mg/dL (8.6-10.3); Carbon Dioxide 23 mEq/L (23-29); Chloride 109 mEq/L (98-107); Glucose 84 mg/dL (70-105); Osmolality,Calculated 289 (280-300); Potassium 3.6 mEq/L (3.5-5.1); Sodium 140 mEq/L (136-145); eGFR For African Americans > 60 (> 60); eGFR For Non-African Americans > 60 (> 60)
[2019-06-29] MEDS: Nicotine 21 MG PATCH.TD24 TD SCH (18:02)
[2019-06-29] MEDS ORDERED: *HR* LORazepam 2 MG/ML VIAL IVP PRN ×3 (18:14→18:15)
[2019-06-29] MEDS ORDERED: *HR* OxyCODONE/APAP 5/325 TABLET PO PRN (18:44)
[2019-06-29] MEDS ORDERED: *HR* FentaNYL PATCH 25 MCG PATCH TD SCH (18:45)
[2019-06-29] MEDS: 0.9 % Sodium Chloride 1,000 ML IVC SCH (18:49)
[2019-06-29] MEDS: *HR* HYDROcodone/Acet 5/325 mg TABLET PO PRN (18:49)
[2019-06-30] MEDS ORDERED: Ketorolac 15 MG/ML VIAL IM ONE (05:57)
[2019-06-30] MEDS: Lisinopril 20 MG TABLET PO SCH (08:14)
[2019-06-30] MEDS: *HR* HYDROcodone/Acet 5/325 mg TABLET PO PRN ×2 (08:14→20:04)
[2019-06-30] MEDS: amLODIPine 5 MG TABLET PO SCH (08:15)
[2019-06-30] MEDS: Nicotine 21 MG PATCH.TD24 TD SCH (08:15)
[2019-06-30] MEDS: Metoprolol XL (24 HR) Succ 50 MG TAB.ER.24H PO SCH (08:15)
[2019-06-30] MEDS: 0.9 % Sodium Chloride 1,000 ML IVC SCH (08:19)
[2019-06-30] MEDS: Thiamine (B-1) 100 MG TABLET PO SCH (08:22)
[2019-06-30] MEDS: Vitamin B Complex/Vit C/Vit E 1 EACH TABLET PO SCH (08:22)
[2019-06-30] MEDS ORDERED: *HR* Propofol 200 MG/20 ML VIAL IVP ONE (09:54)
[2019-06-30] MEDS ORDERED: Ondansetron 4 MG/2 ML VIAL ONE (09:54)
[2019-06-30] MEDS ORDERED: *HR* FentaNYL (PF) 100 MCG/2 ML VIAL ONE (09:54)
[2019-06-30] MEDS ORDERED: Lidocaine -MPF 2% 2 ML VIAL ONE (09:54)
[2019-06-30] MEDS ORDERED: Dexamethasone 4 MG/ML VIAL ONE (09:54)
[2019-06-30] MEDS ORDERED: *HR* Midazolam HCl 2 MG/2 ML VIAL ONE (09:54)
[2019-06-30 10:37] LABS: Basophils % 0.4 %; Eosinophils # 0.1 K/mcL (0.0-0.6); Hematocrit 37.6 % (37.5-50.1); Immature Granulocytes % 0.3 % (0-4); Lymphocytes # 2.3 K/mcL (0.6-4.6); Lymphocytes % 32.1 %; Mean Corpuscular HGB Conc 33.2 g/dL (31.6-35.5); Mean Corpuscular Hemoglobin 33.2 pg (28.0-33.3); Mean Corpuscular Volume 99.7 fL (83.0-100.0); Mean Platelet Volume 11.4 fL (9.4-12.4); Monocytes # 0.9 K/mcL (0.0-1.3); Monocytes % 12.8 %; Neutrophils # 3.7 K/mcL (1.6-8.9); Platelet Count 118 K/mcL (140-400); Red Blood Count 3.77 M/mcL (4.19-5.50); Red Cell Distribution Width 12.6 % (11.5-14.5); Segmented Neutrophils % 52.4 %
[2019-06-30 10:39] LABS: Hemoglobin 12.5 g/dL (12.9-16.9)
[2019-06-30] MEDS ORDERED: *HR* OxyCODONE Immed Rel 5 MG TABLET PO PRN (10:39)
[2019-06-30] MEDS ORDERED: *HR* HYDROmorphone (PF) 1 MG/ML SYRINGE IVP PRN (10:39)
[2019-06-30] MEDS ORDERED: ceFAZolin 2,000 MG in Water for inj. (sterile) 20 ML IVP ONE (10:47)
[2019-06-30 11:00] LABS: Alanine Aminotransferase 12 Units/L (7-52); Albumin 3.6 g/dL (3.5-5.7); Albumin/Globulin Ratio 1.4 (1.1-2.2); Alkaline Phosphatase 52 Units/L (34-104); Aspartate Amino Transferase 19 Units/L (13-39); BUN/Creatinine Ratio 14 (6-26); Bilirubin,Total 0.7 mg/dL (0.3-1.0); Blood Urea Nitrogen 13 mg/dL (6-20); Calcium 8.5 mg/dL (8.6-10.3); Carbon Dioxide 23 mEq/L (23-29); Chloride 112 mEq/L (98-107); Globulin 2.5 g/dL (2.4-3.5); Glucose 87 mg/dL (70-105); Osmolality,Calculated 291 (280-300); Potassium 3.9 mEq/L (3.5-5.1); Sodium 141 mEq/L (136-145); Total Protein 6.1 g/dL (6.4-8.9); eGFR For African Americans > 60 (> 60); eGFR For Non-African Americans > 60 (> 60)
[2019-06-30] MEDS ORDERED: *HR* HYDROMORPHONE 2 MG/ML VIAL ONE (11:45)
[2019-06-30] MEDS: ceFAZolin 2,000 MG in 0.9 % Sodium Chloride 100 ML IVPB SCH ×2 (17:25→23:51)
[2019-06-30] MEDS ORDERED: Ketorolac 15 MG/ML VIAL IVP ONE (23:18)
[2019-06-30] MEDS ORDERED: *HR* OxyCODONE Immed Rel 5 MG TABLET PO ONE (23:36)
[2019-07-01] MEDS: *HR* HYDROcodone/Acet 5/325 mg TABLET PO PRN ×3 (04:19→21:54)
[2019-07-01] MEDS ORDERED: *HR* Enoxaparin 40 MG/0.4 ML SYRINGE SQ SCH (06:00)
[2019-07-01 06:42] LABS: Hematocrit 32.1 % (37.5-50.1); Hemoglobin 11.2 g/dL (12.9-16.9)
[2019-07-01] MEDS: Nicotine 21 MG PATCH.TD24 TD SCH (11:04)
[2019-07-01] MEDS: Thiamine (B-1) 100 MG TABLET PO SCH (11:05)
[2019-07-01] MEDS: Aspirin Enteric Coated 325 MG Tablet PO SCH (11:05)
[2019-07-01] MEDS: Vitamin B Complex/Vit C/Vit E 1 EACH TABLET PO SCH (11:05)
[2019-07-01] MEDS: Metoprolol XL (24 HR) Succ 50 MG TAB.ER.24H PO SCH (11:05)
[2019-07-01] MEDS: amLODIPine 5 MG TABLET PO SCH (11:07)
[2019-07-01] MEDS: Lisinopril 20 MG TABLET PO SCH (11:09)
[2019-07-02] MEDS: *HR* HYDROcodone/Acet 5/325 mg TABLET PO PRN (05:17)
[2019-07-02 07:00] VITALS: BP 171/88
[2019-07-02 07:13] LABS: Hemoglobin 10.8 g/dL (12.9-16.9)
[2019-07-02] MEDS: Metoprolol XL (24 HR) Succ 50 MG TAB.ER.24H PO SCH (07:55)
[2019-07-02] MEDS: Vitamin B Complex/Vit C/Vit E 1 EACH TABLET PO SCH (07:55)
[2019-07-02] MEDS: amLODIPine 5 MG TABLET PO SCH (07:55)
[2019-07-02] MEDS: Nicotine 21 MG PATCH.TD24 TD SCH (07:56)
[2019-07-02] MEDS: Thiamine (B-1) 100 MG TABLET PO SCH (07:56)
[2019-07-02] MEDS: Aspirin Enteric Coated 325 MG Tablet PO SCH (07:56)
[2019-07-02] MEDS: Lisinopril 20 MG TABLET PO SCH (08:00)
== END 2019-07-02 14:51 | disposition home or self-care (01) | DRG 493 ==
LOC: 3NENU 15:30 → EMEROOARM 15:30 → 3NENU 18:18 → SUATTDRO 06-30 10:48
PROVIDERS: ADMIT Internal Medicine; ATTEND Internal Medicine

== ENCOUNTER 2021-10-14 17:17 | Observation (INO) ==
[2021-10-14] MEDS ORDERED: 0.9 % Sodium Chloride 1,000 ML IVC ONE (17:39)
[2021-10-14 18:25] LABS: Basophils % 0.2 %; Eosinophils # 0.1 K/mcL (0.0-0.6); Eosinophils % 1.6 %; Hematocrit 41.4 % (37.5-50.1); Hemoglobin 14.1 g/dL (12.9-16.9); Immature Granulocytes % 0.7 % (0-4); Lymphocytes # 1.3 K/mcL (0.6-4.6); Mean Corpuscular HGB Conc 34.1 g/dL (31.6-35.5); Mean Corpuscular Hemoglobin 32.3 pg (28.0-33.3); Mean Platelet Volume 10.6 fL (9.4-12.4); Monocytes # 1.7 K/mcL (0.0-1.3); Monocytes % 18.8 %; Neutrophils # 5.7 K/mcL (1.6-8.9); Platelet Count 302 K/mcL (140-400); Red Blood Count 4.36 M/mcL (4.19-5.50); Red Cell Distribution Width 11.6 % (11.5-14.5); Segmented Neutrophils % 63.7 %; White Blood Count 8.9 K/mcL (4.3-11.1)
[2021-10-14] MEDS ORDERED: Isovue-370 500 ML BOTTLE IVP ONE (18:51)
[2021-10-14 18:54] LABS: BUN/Creatinine Ratio 12 (6-26); Blood Urea Nitrogen 10 mg/dL (6-20); Calcium 9.5 mg/dL (8.6-10.3); Carbon Dioxide 21 mEq/L (23-29); Chloride 103 mEq/L (98-107); Glucose 79 mg/dL (70-105); Osmolality,Calculated 274 (280-300); Potassium 4.2 mEq/L (3.5-5.1); Sodium 133 mEq/L (136-145); Troponin I < 0.03 ng/mL (< 0.04); eGFR For African Americans > 60 (> 60); eGFR For Non-African Americans > 60 (> 60)
[2021-10-14 18:59] LABS: Large Platelets Present (Not Present); Reactive Lymphocytes Present (Not Present)
[2021-10-14] MEDS ORDERED: Naloxone 0.4 MG/ML INJ IVP PRN (21:51)
[2021-10-14] MEDS ORDERED: Melatonin 3 MG TABLET PO PRN (22:02)
[2021-10-14] MEDS ORDERED: Ondansetron 4 MG/2 ML VIAL IVP PRN (22:02)
[2021-10-14] MEDS ORDERED: Acetaminophen 325 MG TABLET PO PRN (22:02)
[2021-10-14] MEDS ORDERED: Perflutren Lipid Microsphere 1.3 ML in 0.9 % Sodium Chloride 8.7 ML IVP PRN (22:06)
[2021-10-14] MEDS ORDERED: Saliva Stimulant 44.3ml BOTTLE PO PRN (22:19)
[2021-10-14] MEDS ORDERED: *HR* LORazepam 2 MG/ML VIAL IVP PRN ×3 (22:25)
[2021-10-14] MEDS ORDERED: methylPREDNISolone 125 MG/2 ML VIAL IVP ONE (22:30)
[2021-10-14 23:20] LABS: Ethanol < 10 mg/dL (Less than 10); Lipase 31 Units/L (11-82)
[2021-10-14 23:22] LABS: Troponin I < 0.03 ng/mL (< 0.04)
[2021-10-14] MEDS: Budesonide/Formoterol 160/4.5 1 PUFF INH IH SCH (23:47)
[2021-10-15] MEDS ORDERED: Dextrose 4 GM Chewable Tablets PO PRN ×2 (00:26)
[2021-10-15] MEDS ORDERED: *HR* Dextrose 50 % in Water (Syg) 50 ML SYRINGE IVP PRN (00:26)
[2021-10-15] MEDS ORDERED: D5% in Water 1,000 ML IVC PRN (00:26)
[2021-10-15] MEDS ORDERED: 0.9 % Sodium Chloride 1,000 ML IVC SCH (00:30)
[2021-10-15] MEDS: Ipratropium 1 PUFF INHALER IH SCH ×2 (04:22→09:50)
[2021-10-15 05:14] LABS: C-Reactive Protein 94 mg/L (Less than 10); Lactate Dehydrogenase 142 Units/L (140-271)
[2021-10-15 05:15] LABS: BUN/Creatinine Ratio 11 (6-26); Blood Urea Nitrogen 9 mg/dL (6-20); Calcium 9.3 mg/dL (8.6-10.3); Carbon Dioxide 22 mEq/L (23-29); Chloride 106 mEq/L (98-107); Chol/HDL Ratio 3.5 (0-4.9); Cholesterol 60 mg/dL (< 200); Glucose 144 mg/dL (70-105); HDL Cholesterol 17 mg/dL (40-59); LDL Cholesterol,Calculated 23 mg/dL (< 100); Magnesium 1.9 mg/dL (1.6-2.6); Osmolality,Calculated 285 (280-300); Phosphorous 2.3 mg/dL (2.7-4.5); Potassium 4.4 mEq/L (3.5-5.1); Sodium 137 mEq/L (136-145); Triglycerides 99 mg/dL (< 150); eGFR For African Americans > 60 (> 60); eGFR For Non-African Americans > 60 (> 60)
[2021-10-15 05:28] LABS: Hematocrit 38.4 % (37.5-50.1); Hemoglobin 13.3 g/dL (12.9-16.9); Mean Corpuscular HGB Conc 34.6 g/dL (31.6-35.5); Mean Corpuscular Hemoglobin 32.9 pg (28.0-33.3); Mean Platelet Volume 10.9 fL (9.4-12.4); Platelet Count 305 K/mcL (140-400); Red Blood Count 4.04 M/mcL (4.19-5.50); Red Cell Distribution Width 11.8 % (11.5-14.5); White Blood Count 7.5 K/mcL (4.3-11.1)
[2021-10-15 05:32] LABS: Ferritin 324 ng/mL (20-250)
[2021-10-15 05:49] LABS: INR 1.1; Prothrombin Time 12.7 Seconds (9.4-12.1)
[2021-10-15 05:51] LABS: Activated Partial Thrombo Time 32.1 Seconds (26.0-36.0)
[2021-10-15] MEDS ORDERED: *HR* Enoxaparin 40 MG/0.4 ML SYRINGE SQ SCH (06:00)
[2021-10-15] MEDS ORDERED: MethylPREDNISolone 40 MG/ML VIAL IVP SCH (08:00)
[2021-10-15] MEDS ORDERED: polyethylene glycoL 3350 17 GM POWD.PACK PO PRN (08:44)
[2021-10-15] MEDS ORDERED: Chlorhexidine Rinse 15 ML MOUTHWASH MM SCH (09:00)
[2021-10-15] MEDS ORDERED: Cholecalciferol (D-3) 1,000 UNIT (25MCG) TABLET PO SCH (09:00)
[2021-10-15] MEDS ORDERED: Metoprolol XL (24 HR) Succ 50 MG TAB.ER.24H PO SCH (09:00)
[2021-10-15] MEDS ORDERED: Gabapentin 300 MG CAPSULE PO SCH (09:00)
[2021-10-15] MEDS ORDERED: Multivit/Ca/Min/Fe/FA 1 TAB TABLET PO SCH (09:00)
[2021-10-15] MEDS ORDERED: Folic Acid 1 MG TABLET PO SCH (09:00)
[2021-10-15] MEDS ORDERED: lamoTRIgine 25 MG TABLET PO SCH (09:00)
[2021-10-15] MEDS ORDERED: Vitamin B Complex/Vit C/Vit E 1 EACH TABLET PO SCH (09:00)
[2021-10-15] MEDS ORDERED: Lactobacillus 1 EACH CAP.SPRINK PO SCH (09:00)
[2021-10-15] MEDS ORDERED: Aspirin Enteric Coated 81 MG Tablet PO SCH (09:00)
[2021-10-15] MEDS ORDERED: Thiamine (B-1) 100 MG TABLET PO SCH (09:00)
[2021-10-15] MEDS ORDERED: lisinopriL 20 MG TABLET PO SCH (09:00)
[2021-10-15] MEDS ORDERED: Azithromycin 250 MG TABLET PO SCH (09:00)
[2021-10-15] MEDS: Budesonide/Formoterol 160/4.5 1 PUFF INH IH SCH (09:51)
[2021-10-15 11:39] VITALS: BP 133/73; PULSE 81; TEMP 98.2; O2SAT 93
[2021-10-15 13:32] LABS: Estimated Average Glucose 114 mg/dl; Hemoglobin A1C 5.6 %
== END 2021-10-15 12:57 | disposition home or self-care (01) ==
LOC: EMEROOARM 17:17 → 3BNU 17:17 → SUATTDRO 20:16 → 3BNU 20:45
PROVIDERS: ADMIT Internal Medicine; ATTEND Internal Medicine